=== PATIENT | male | born 1970 | race Caucasian/White ===

== ENCOUNTER 2024-04-22 11:48 | Outpatient (CLI) | payer OTHER | END 2024-04-22 11:49 | disposition home or self-care (01) | LOC: BICRAD 11:48 | PROVIDERS: ATTEND Preventive Medicine Occupational Medicine | DX: Z02.71 Encounter for disability determination (principal); S49.91XA Unspecified injury of right shoulder and upper arm, initial encounter; S49.92XA Unspecified injury of left shoulder and upper arm, initial encounter; M25.561 Pain in right knee; M25.562 Pain in left knee; R06.02 Shortness of breath; M19.012 Primary osteoarthritis, left shoulder; M19.011 Primary osteoarthritis, right shoulder; M79.89 Other specified soft tissue disorders; M17.11 Unilateral primary osteoarthritis, right knee | CPT/HCPCS: 71046 ==